=== PATIENT | male | born 1940 | race Caucasian/White ===

== ENCOUNTER 2019-03-02 17:00 | Inpatient (IN) | payer OTHER, MEDICARE ==
[~2019-03-02] VITALS: Ht 175.3 cm; Wt 69.5 kg
[2019-03-02 17:42] LABS: CARBON DIOXIDE 27.9 mmol/L (21-32); CHLORIDE SERUM 101 mmol/L (98-107); CREATININE SERUM 1.4 mg/dL (0.7-1.3); GLUCOSE SERUM 96 mg/dL (74-106); POTASSIUM SERUM 4.8 mmol/L (3.5-5.1); SODIUM SERUM 136 mmol/L (136-145)
[2019-03-02 17:47] LABS: ALKALINE PHOSPHATASE 116 U/L (46-116); ALT/SGPT 17 U/L (16-63); AST/SGOT 25 U/L (15-37); BILIRUBIN TOTAL 0.57 mg/dL (0.20-1.00); TOTAL PROTEIN, SERUM 6.9 g/dL (6.4-8.2)
[2019-03-02 17:48] LABS: ALBUMIN 2.9 g/dL (3.4-5.0)
[2019-03-02 18:00] LABS: BASOPHIL % 0.6 % (0-2); PLATELET COUNT 347 x10^3mcL (130-400); RED CELL DISTRIBUTION WIDTH 14.9 % (11.5-14.5)
[2019-03-02] MEDS ORDERED: LIPI20 PO (20:53)
[2019-03-02] MEDS ORDERED: CLOPIDOGREL75 M1 PO (20:53)
[2019-03-02] MEDS ORDERED: ASPIR 8181 MG PO (20:53)
[2019-03-02] MEDS ORDERED: LAMOTRIGINE100 M1 PO (20:54)
[2019-03-02] MEDS ORDERED: LEVOTHYROXIN0.125 M2 PO (20:54)
[2019-03-02] MEDS ORDERED: PROZ20 PO (20:54)
[2019-03-02] MEDS ORDERED: PYRIDOSTIGMINE60 MG PO (20:55)
[2019-03-02] MEDS ORDERED: MAGNESIUM OXID400 MG PO (20:55)
[2019-03-02] MEDS ORDERED: TRAMADOL HCL50 MG PO (20:56)
[2019-03-02] MEDS ORDERED: SEROQUEL50 M1 PO (20:56)
[2019-03-02] MEDS ORDERED: VITAMIN B121000 MCG PO (20:56)
[2019-03-02 21:07] LABS: microscopic required? NO
[2019-03-02 21:20] LABS: CHOLESTEROL/HDL RATIO 2.2
[2019-03-02 21:34] LABS: UA SPECIFIC GRAVITY <=1.005 (1.005-1.035); urine erythrocyte NEGATIVE (NEGATIVE)
[2019-03-02 21:54] VITALS: BP 150/89
[2019-03-03 05:47] VITALS: BP 141/64
[2019-03-03 06:47] LABS: CALCIUM 8.4 mg/dL (8.5-10.1); CARBON DIOXIDE 30.1 mmol/L (21-32); CHLORIDE SERUM 104 mmol/L (98-107); CREATININE SERUM 1.2 mg/dL (0.7-1.3); GLUCOSE SERUM 90 mg/dL (74-106); POTASSIUM SERUM 4.2 mmol/L (3.5-5.1); SODIUM SERUM 138 mmol/L (136-145)
[2019-03-03 07:33] LABS: BASOPHIL % 0.6 % (0-2); PLATELET COUNT 331 x10^3mcL (130-400); RED CELL DISTRIBUTION WIDTH 15.1 % (11.5-14.5)
[2019-03-03 09:00] VITALS: BP 103/71
[2019-03-03 12:44] VITALS: BP 123/65
[2019-03-03 13:24] VITALS: BP 123/65
[2019-03-06 13:46] VITALS: Ht 175.3 cm; Wt 69.5 kg
== END 2019-03-03 14:55 | DRG 604 ==
LOC: ED 17:00 → DU 20:33
PROVIDERS: Emergency Medicine; ADMIT Family Medicine
DX: S00.03XA Contusion of scalp, initial encounter (principal); N17.0 Acute kidney failure with tubular necrosis; E44.0 Moderate protein-calorie malnutrition; F33.9 Major depressive disorder, recurrent, unspecified; I25.10 Atherosclerotic heart disease of native coronary artery without angina pectoris; E03.9 Hypothyroidism, unspecified; M54.9 Dorsalgia, unspecified; G89.29 Other chronic pain; Z66 Do not resuscitate; Z95.3 Presence of xenogenic heart valve; Z95.1 Presence of aortocoronary bypass graft; Z68.24 Body mass index [BMI] 24.0-24.9, adult; Z87.891 Personal history of nicotine dependence; Z79.02 Long term (current) use of antithrombotics/antiplatelets; Z79.82 Long term (current) use of aspirin; W01.0XXA Fall on same level from slipping, tripping and stumbling without subsequent striking against object, initial encounter; Y92.099 Unspecified place in other non-institutional residence as the place of occurrence of the external cause
CPT/HCPCS: J0696; J3490; J7030; Q0092; Q9967

== ENCOUNTER 2019-03-04 15:50 | Emergency (ER) | payer OTHER, MEDICARE ==
[~2019-03-04] VITALS: Ht 175.3 cm; Wt 86.2 kg
[~2019-03-04 15:50] MED LIST: ASPIR 8181 MG PO; CLOPIDOGREL75 M1 PO; LAMOTRIGINE100 M1 PO; LEVOTHYROXIN0.125 M2 PO; LIPI20 PO; MAGNESIUM OXID400 MG PO; PROZ20 PO; PYRIDOSTIGMINE60 MG PO; SEROQUEL50 M1 PO; TRAMADOL HCL50 MG PO; VITAMIN B121000 MCG PO
[2019-03-04 15:56] VITALS: Ht 175.3 cm; Wt 86.2 kg
[2019-03-04 19:38] VITALS: BP 117/68
== END 2019-03-04 19:38 | disposition home or self-care (01) ==
LOC: ED 15:50
DX: S09.8XXA Other specified injuries of head, initial encounter (principal); I10 Essential (primary) hypertension; W18.39XA Other fall on same level, initial encounter; Y93.89 Activity, other specified; Y92.89 Other specified places as the place of occurrence of the external cause; Y99.8 Other external cause status

== ENCOUNTER 2019-04-18 19:23 | Emergency (ER) | payer OTHER, MEDICARE ==
[~2019-04-18] VITALS: Ht 175.3 cm; Wt 83.9 kg
[~2019-04-18 19:23] MED LIST changes: -LEVOTHYROXIN0.125 M2 PO
[2019-04-18 19:32] VITALS: Ht 175.3 cm; Wt 83.9 kg
[2019-04-18 22:30] VITALS: BP 113/59
== END 2019-04-18 22:30 | disposition home or self-care (01) ==
LOC: ED 19:23
DX: S09.8XXA Other specified injuries of head, initial encounter (principal); I10 Essential (primary) hypertension; Z95.818 Presence of other cardiac implants and grafts; Z98.890 Other specified postprocedural states; W01.0XXA Fall on same level from slipping, tripping and stumbling without subsequent striking against object, initial encounter; Y93.01 Activity, walking, marching and hiking; Y92.89 Other specified places as the place of occurrence of the external cause; Y99.8 Other external cause status

== ENCOUNTER 2019-05-26 11:37 | Inpatient (IN) | payer OTHER, MEDICARE ==
[~2019-05-26] VITALS: Ht 175.3 cm; Wt 69.9 kg
[2019-05-26 11:45] VITALS: Ht 175.3 cm; Wt 69.9 kg
--- NOTE | 2019-05-26 11:45 | NUR ---
PT BIB [facility] AMBULANCE WITH C/O INTERMITTENT N/V WITH GENERALIZED ABD "DULLNESS" X2-3 DAYS. PT STS HX GASTRIC ULCERS. PT DENIES ANY URINARY S/S. PT AAOX4, RESPS E/U, SKIN PINK DRY AND WARM, -N/V AT THIS TIME, PT GOWNED AND PLACED ON FULL CM, NSR
--- NOTE | 2019-05-26 11:49 | NUR ---
LAB AT BEDSIDE
--- NOTE | 2019-05-26 11:50 | NUR ---
PT STS AMBULATES WITH HIS CANE AND/OR WALKER WHICH IS CURRENTLY AT [facility].
--- NOTE | 2019-05-26 11:55 | NUR ---
PT INSTRUCTED TO PROVIDE URINE SPECIMEN LETITIA
[2019-05-26 12:11] LABS: BASOPHIL % 0.2 % (0-2); PLATELET COUNT 362 x10^3mcL (130-400); RED CELL DISTRIBUTION WIDTH 14.5 % (11.5-14.5)
[2019-05-26 12:12] LABS: CARBON DIOXIDE 26.7 mmol/L (21-32); CHLORIDE SERUM 105 mmol/L (98-107); CREATININE SERUM 1.3 mg/dL (0.7-1.3); GLUCOSE SERUM 103 mg/dL (74-106); POTASSIUM SERUM 4.1 mmol/L (3.5-5.1); SODIUM SERUM 141 mmol/L (136-145)
[2019-05-26 12:16] LABS: ALKALINE PHOSPHATASE 91 U/L (46-116); ALT/SGPT 15 U/L (16-63); AMYLASE 57 U/L (25-115); AST/SGOT 16 U/L (15-37); BILIRUBIN TOTAL 0.7 mg/dL (0.20-1.00); LIPASE 41 IU/L (73-393)
[2019-05-26 12:17] LABS: ALBUMIN 3.1 g/dL (3.4-5.0)
--- NOTE | 2019-05-26 12:30 | NUR ---
PT TAKEN TO CT VIA EKATERINA
--- NOTE | 2019-05-26 12:50 | NUR ---
PT IN POSITION OF COMFORT, RESPS E/U, PT REMINDED TO PROVIDE URINE SPECIMEN LETITIA, CALL LIGHT WITHIN REACH
[2019-05-26 13:18] LABS: T4(THYROXINE) 8.9 ug/dL (4.7-13.3)
[2019-05-26] MEDS ORDERED: CALCITRIOL0.5 MCG PO (13:29)
[2019-05-26] MEDS ORDERED: GOOD SENSE ASPI81 M3 PO (13:29)
[2019-05-26] MEDS ORDERED: LEVOTHYROXIN0.125 M2 PO (13:30)
[2019-05-26] MEDS ORDERED: MIDODRINE HCL2.5 M1 PO (13:31)
[2019-05-26] MEDS ORDERED: TRAZODONE50 M1 PO (13:32)
[2019-05-26] MEDS ORDERED: VITB12I PO (13:33)
[2019-05-26] MEDS ORDERED: ACETAMINOP160 MG/52 PO (13:36)
[2019-05-26 14:48] LABS: microscopic required? YES; urine erythrocyte NEGATIVE (NEGATIVE)
--- NOTE | 2019-05-26 14:54 | NUR ---
PT IN POSITION OF COMFORT, RESPS E/U, CALL LIGHT WITHIN REACH, WARM BLANKET PROVIDED PER PT REQUEST AND COMFORT
[2019-05-26 14:58] LABS: AMPHETAMINE QUAL UR NONE DETECTED (See below)
--- NOTE | 2019-05-26 15:53 | NUR ---
PT RESTING IN POSITION OF COMFORT, RESPS E/U, IN NAD AT THIS TIME, CALL LIGHT WITHIN REACH
--- NOTE | 2019-05-26 16:12 | NUR ---
MD SILVA AT BEDSIDE DISCUSSING POC
--- NOTE | 2019-05-26 16:20 | NUR ---
REPORT GIVEN TO VIKA GRIFFITHS TELE RM [id number]
--- NOTE | 2019-05-26 17:00 | NUR ---
RECEIVED PATIENT AWAKE AND SEEMS AT FIRST TO ORIENTED BUT ON FURTHER TALKIGN WITH THE PATIENT HIS HISTORY IS A LITTLE OFF HE DOES OT REMEMBER BEIGN AT THIS HOSPITAL IN FEBRUARY AND DOES NOT REMEMBER HAVING THE PNEUMONIA VACINE IN 2017. WITH THIS BEING SO STAFF WAS ABLE TO DETERMINE ALSO THE PATIENT HAD NOT BEEN EATTING AND HAD A RECENT FALL IN FEBRUARY. HE HAS PRESENTED WITH NAUSEA AND HAD BEEN VOMITING AT HOME FOR A COUPLE OF DAYS. HE HAS ADMITTEDLY NOT EATTEN HE STATES HE DOES NOT LIKE THE FOOD AT THE FACILTY. PATIENT HAS IV ITNAC TAND CONTINUED ON THE FLUIDS ORDERED. RUNNING WAS TWO IV BAGS EACH WITH ABOUT 300CC A PIECE. WILL FINISH AND START THE FLUIDS ORDERED. PATIENT HAS PALE SKIN AND IS LEAN IN APPEARANCE. HIS WEIGHT IS AT 154 AND HE IS 5'9". HE USE TO WEIGHT WELL OVER 250LBS PER THE PATIENT . 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 HE DENIE ANY PROBLEMS WITH URINATION AND SEEMS A LITTLE HESITANT ON WHEN HE LAST MOVED HIS BOWELS. PATIENT AHS INDICATE DHE IS HUNGERY AND STAT HE HEARD THE FOOD IS BETTER HERE AND THE FOOD AT THE FACILITY IS NOT GOO AND HE JUST WOUNT EAT WHAT IS OFFERED MOST OF THE TIME. HX OF MRSA NOTED AND PATIENT HAD THE NAREA SWABBED AND AWAITING RESULTS. URINE IWTH SOME BACTERIA AND PATIENT ASN WBC AT 12.3. ALBUMIN AT 3.1 AND THE TSH AT 0.26. DENIE STAKING MEDICADTION AT HOME DUE TO NAUSEA. ON XRAY THE PATIE TNHAS PLEURAL EFFUSION BUT DENIES THIS WHEN ADVISE DOF HIS RESULTS. HE HAS ALOS HISTORY OF BLEEDDING ULCER AROUND THE TIME HE HAS THE CABAG. NO ACTIVE BLEEDIGN REPORTED AND ALBAN AND DR THOMAS TO SEE CONSULT. VITALS AT THIS TIME AT 161/82, 126MAP, 96.8, 67, 18. WILL CONTINUE TO MONITOR.
[2019-05-26 17:12] VITALS: BP 161/82
--- NOTE | 2019-05-26 18:36 | NUR ---
BRANDY IS ANXIOUS AND RESTLESS AT TIMES. WILL ADVISE THAT PATIENT MAKE BE A FALL HAZARD AND TO BRING CLOSURE TO THE STATION.
--- NOTE | 2019-05-26 19:25 | NUR ---
PT RESTING IN BED, AOX3, FORGETFUL AT TIMES, ABLE TO REORIENT. DENIES GALEANA/DIZZINESS. TELE # 10 SR W/ INVERTED T WAVES, DENIES CP. PULSES PALPABLE BILAT, DENIES NUMBNESS/TINGLING IN FEET. RESP EVEN AND UNLABORED ON RA, DENIES SOB. DIM BILAT BASES. ABD SOFT, FLAT, DENIES PAIN IN ABD. PT UNABLE TO RECALL LAST BM, PT REPORTS HAVING NOT EATING IN SOME TIME. PT REPORTS LAST MEAL WAS A "SALTY SOUP" FROM HIS ASSISTED LIVING FACILITY, PT ALSO REPORTS HAVING DECREASED APPETITE BECAUSE THE FOOD WAS NOT HIS PREFERENCE. PT REPORTS HAVING LOST A SIGNIFICANT AMOUNT OF WEIGHT (NUMBERS VARYING; 25LBS, 50LBS, 30LBS). EDUCATED PT IN SELECTED FOODS HE LIKES AND EATING THOSE FIRST WELL EATING IN A GROUP SETTING TO ENCOURAGE A LONGER MEAL TIME. PT VERBALIZES UNDERSTANDING, PT CURRENTLY ON CLEAR LIQUIDS D/T VOMITING AT FACILITY. NO VOMITING SINCE ADMISSION TO [facility]. PT VOIDS FREELY IN RESTROOM, ENCOURAGED CALL LIGHT USAGE SINCE PT DEMONSTRATES A SLOW, SHUFFLING GAIT WITH MOMENTS OF IMPULSION. BED ALARM ON, CALL LIGHT WITHIN REACH. PT REPORTS USING WALKER/CANE AT HOME. SKIN INTACT. DENIES PAIN AT THIS TIME. IV SITE TO THE LAC PATENT, BOLUS ALMOST COMPLETE. ALL COMFORT AND SAFETY MEASURES PROVIDED FOR, CALL LIGHT WITHIN REACH, BED IN LOWEST POSITION, WILL CONTINUE TO MONITOR.
[2019-05-26 20:30] VITALS: BP 137/72
[2019-05-26 20:40] VITALS: BP 142/82
--- NOTE | 2019-05-26 21:30 | NUR ---
INSERTED NEW IV TO THE RFA, 22G. REMOVED OLD IV FROM LAC D/T LEAKING. REMOVED WITH CATH INTACT, PT TOLERATED WELL. WILL CONTINUE TO MONITOR.
--- NOTE | 2019-05-27 03:50 | NUR ---
MEDICATED PT WITH MILK OF MAG FOR CONSTIPATION. PT ATTEMPTED TO GET OUT OF BED WITHOUT USING CALL LIGHT INSTRUCTED. BED ALARM SOUNDED AND PT STANDING AT BEDSIDE UNABLE TO MANUEVER IV POLE. ASSISTED PT TO TOILET WITH UNSUCCESSFUL ATTEMPTED AT BM (PT SAT FOR APPROX 10 MINS). EDUCATED PT HE HAS BEEN ON CLEAR LIQUID DIET SINCE ADMISSION AND PRIOR TO WAS REPORTEDLY VOMITING X3 DAYS. PT REQUESTING SUPPOSITORY, RECOMMENDED PT TRY MILK OF MAG A CONSERVATIVE TX FOR FEELINGS OF CONSTIPATION, PT VERBALIZES UNDERSTANDING, CALL LIGHT WITHIN REACH AND PT AWARE OF NEEDING TO USE CALL LIGHT FOR ASSISTANCE. BED IN LOWEST POSITION, WILL CONTINUE TO MONITOR PT CLOSELY FOR SAFETY AND REORIENTATION PRN.
--- NOTE | 2019-05-27 05:00 | NUR ---
PT RESTED IN INTERVALS DURING SHIFT, NO ACUTE CHANGES OCCURRING OVERNIGHT. PT CONTINUES TO ATTEMPT TO HAVE BM, MILK OF MAG GIVEN. PT HAS BEEN ON CLEAR LIQUIDS FOR ONE DAY. NO N/V/D DURING SHIFT. PT HAS NEW IV TO THE RFA WHICH REMAINS PATENT, NS @ 50ML/HR. NO REDNESS, SWELLING OR PAIN NOTED. PT ATTEMPTED TO GET OUT OF BED TWICE WITHOUT USING CALL LIGHT WHICH IS WHY BED ALARM REMAINS ACTIVATED. PT VERBALIZES THE NEED FOR BED ALARM AND APPRECIATION FOR CONCERN FOR SAFETY. WILL CONTINUE TO EDUCATE PT ON SAFETY PROTOCOLS. PT REMAINS ON RA, DENIES SOB. ALL COMFORT AND SAFETY MEASURES PROVIDED FOR, CALL LIGHT WITHIN REACH, BED IN LOWEST POSITION, WILL CONTINUE TO MONITOR.
[2019-05-27 06:02] VITALS: BP 129/76
[2019-05-27 06:50] LABS: CARBON DIOXIDE 24.3 mmol/L (21-32); CHLORIDE SERUM 108 mmol/L (98-107); CREATININE SERUM 1.2 mg/dL (0.7-1.3); GLUCOSE SERUM 93 mg/dL (74-106); MAGNESIUM 1.9 mg/dL (1.8-2.4); POTASSIUM SERUM 3.6 mmol/L (3.5-5.1); SODIUM SERUM 140 mmol/L (136-145)
[2019-05-27 07:04] LABS: BASOPHIL % 0.6 % (0-2); PLATELET COUNT 301 x10^3mcL (130-400); RED CELL DISTRIBUTION WIDTH 14.5 % (11.5-14.5)
--- NOTE | 2019-05-27 07:15 | NUR ---
ENDORSED ALL CARE TO DAYSHIFT NURSE, NO ACUTE DISTRESS NOTED. ALL QUESTIONS AND CONCERNS ADDRESSED, CALL LIGHT WITHIN REACH, BED IN LOWEST POSITION, WILL CONTINUE TO MONITOR.
--- NOTE | 2019-05-27 08:00 | NUR ---
PATIENT RECEIVED ALERT AND ORIENTED TIMES FOUR. PATIENT HAS BEEN UP AND TO THE RESTROOM AND NTOE DSOME UNSTEADINESS BUT OVERALL HAS BEEN ABLE TO GET THERE AND BACK WITH NO ISSUES. PATIENT HAS BEEN USING THE IV POLE A TYPE OF ASSISTIVE DEVICE. PATIENT HAS DIMINISHED BREATH SOUND AND NO RALE SHEARD BUT NOTED THE PATIENT HAS PLEURAL EFFUSIONS AND HAS BEEN WITH MINIMAL INTAKE OF DIET AT HOME FOR OVER A MONTH. PATIENT HAS BEEN GIVEN ALL HIS ORAL MEDICATION AND PEPCID FOR HIS STOMACH WELL. HX OF GASTRIC ULCERS, HYPOTHYROID, CABG AND DEPRESSION AND CHRONIC BACK PAIN. HE NOW ADVISE DHE GALEANA A FRACTURED ANKELAS WELL AT ONE TIME REQUIRING SURGERY. HE STATES HE WARKED AT THIS HOSPITAL MANY YEARS AGO IN THE HUMAN RESOURCES OFFICE AND SEMS TO HAVE KNOWN SOME OF THE [facility] STAFF HERE. 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 AT TIMES HE IS FORGETFUL BUT HAS BEEN LUCID THIS AM. PATIENT WAS SEEN EARLIER BY THE MUCK MINER AND PLAN FO CARE DISCUSSED. NO ORDERS FOR DISCHARGE AT THIS TIME. THE PATIENT COLOR IS STILL PALE BUT IMPROVED SINCE YESTERDAY AND HIS ALOC HAS IMPROVED WELL. HE HIS PETRA IS 163 THIS AM. CONTINUED ON HYDRATION INDICATED. ENCOURAGED TO DEEP BREATH OTEN. REFUSED THE SPRIOMETER WHEN OFFERED BY RT.
[2019-05-27 08:59] VITALS: BP 119/69
--- NOTE | 2019-05-27 10:41 | NUR ---
SEEN BY DR LAWS AND REFUSED ANY PROCEDURE AT THIE TIME. PATIENT HAS BEEN OFFERED EGD AND OR COLONOSCOPY. PATIENT DENIES ANY NAUSEA OR DISTRESS AND STATES "FEELS BETTER AND DOES NOT NEED ANY FURTHER TESTING."
--- NOTE | 2019-05-27 10:42 | NUR ---
NEW ORDER FOR IVPB ANTIBIOTIC NOTED. TO GIVE AT 1400 TODAY. WILL ADVISE THE PATIENT AND THE INDICATION HE FEELS HE SHOULD BE ABLE TO GO HOME TODAY.
--- NOTE | 2019-05-27 12:02 | NUR ---
PATIENT ATTEMPTED TO DISIMPACT HIMSELF. THE NURSE OFFERED ASSISTANCE WHE PATIENT WAS STRAINING AND COULD NOT RELEASE HIS STOOL. PATIENT HAD A MEDIUM STICKY BROWN STOOL AND HE STATES HE FEELS BETTER NOW. OFFERED OINTMENT FOR ANY SORENESS TO THE RECTUM. PATIENT HAD PULLED OFF HIS MONITOR AT THAT TIME AND NOW AT 72 SINUS AND PATIENT HAD PULLED OUT HIS IV WELL. RESTARTED WITH 22 TO THE LEFT FORARM AND CONTINUED FLUIDS INDICATED.
[2019-05-27 12:26] VITALS: BP 107/67
--- NOTE | 2019-05-27 13:00 | NUR ---
CALED THE FLOOR TECHNICIAN WITH ADVISE THAT THE PATIENT IS STRAINING AND ATTEMPTING TO DISIMPACT AND THAT STAFF WOULD LIKE AN ORDER FOR STAFF TODO PATIENT IS HAVING DIFFICULTY AND IS VERY UNCOMFORTABLE. FLOOR TECHNICIAN IS AWARE AND STAFF WILL ASSIST NEEDED.
--- NOTE | 2019-05-27 15:59 | NUR ---
TOLERATED DIET WELL AND HAS BEEN COMFORTABLE POST HAVING HTE MEAL AND A GOOD BM THIS AM. STARTED IN ZOSYN IVPB AND WILL MONITOR FOR ANY ADVERSE REACTION.
[2019-05-27 17:08] VITALS: BP 118/61
--- NOTE | 2019-05-27 19:30 | NUR ---
PT RESTING IN BED, AOX3, PT MORE ALERT AND AWARE OF SURROUNDINGS TODAY. DENIES GALEANA/DIZZINESS. TELE # 10 SR, DENIES CP. PULSES PALPABLE BILAT, DENIES NUMBNESS/TINGLING IN FEET. RESP EVEN AND UNLABORED ON RA, DENIES SOB. DIM BILAT BASES. ABD SOFT, ROUND. PT WAS DISIMPACTED BY DAYSHIFT NURSE, LARGE, SOFT, "STICKY" BM NOTED. PT REPORTS EATING SOME DINNER, DENIES N/V/ABD PAIN AFTER EATING. PT REPORTS DECREASED APPETITE YET HE IS HAPPY TO BE LOSING WEIGHT SINCE HE WAS OVERWEIGHT HIS WHOLE LIFE. EDUCATED PT IN REGARDS TO SAFE WEIGHT MANAGEMENT AND EATIGN NUTRIOUS MEALS TO ENSURE HE MAINTAINS MUSCLE STRENGTH. PT VERBALIZES UNDERSTANDING, PT VOIDS FREELY IN RESTROOM W/ SBA, ENCOURAGED CALL LIGHT USAGE SINCE PT DEMONSTRATES A SLOW, SHUFFLING GAIT WITH MOMENTS OF IMPULSION. BED ALARM ON, CALL LIGHT WITHIN REACH. PT REPORTS USING WALKER/CANE AT HOME. SKIN INTACT. DENIES PAIN AT THIS TIME. IV SITE TO [facility] PATENT, PT ON ANTIBIOTICS. ALL COMFORT AND SAFETY MEASURES PROVIDED FOR, CALL LIGHT WITHIN REACH, BED IN LOWEST POSITION, WILL CONTINUE TO MONITOR.
[2019-05-27 22:47] VITALS: BP 120/63
[2019-05-28 04:56] VITALS: BP 121/61
--- NOTE | 2019-05-28 05:04 | NUR ---
PT RESTED IN INTERVALS DURING SHIFT, NO ACUTE CHANGES OCCURRING OVERNIGHT. PT DENIES N/V/D DURING SHIFT, PT AMBULATED WITH STAND BY ASSIST (SBA) TO RESTROOM DEMONSTRATING MORE OF A STEADY GAIT ALTHOUGH IMPULSIVE STILL AND UNABLE TO INITIATE SAFETY PRECAUTIONS ON OWN. PT RESISTENT TO WEARING NONSLIP SOCKS ALTHOUGH INSTRUCTED IT IS HOSPITAL POLICY, PT VERBALIZES UNDERSTANDING AND COOPERATIVE WITH CARE AT THIS TIME. WHEN EDUCATING PATIENT TO NOT RISE TOO FAST D/T RISK FOR LIGHTHEADEDNESS/DIZZINESS, PT STS "IF I GET LIGHTHEADED, I WILL JUST FALL". PT EDUCATED WE ARE TRYING TO KEEP HIM SAFE AND PT VERBALIZES UNDERSTANDING. PT DID NOT HAVE BM DURING SHIFT, PT VOIDED W/O DYSURIA. IV SITE REMAINS PATENT TO RFA NS @ 50ML/HR. NO REDNESS, SWELLING OR PAIN NOTED. ALL COMFORT AND SAFETY MEASURES PROVIDED FOR, CALL LIGHT WITHIN REACH, BED IN LOWEST POSITION, WILL CONTINUE TO MONITOR.
[2019-05-28 06:32] LABS: CALCIUM 7.7 mg/dL (8.5-10.1); CARBON DIOXIDE 26.7 mmol/L (21-32); CHLORIDE SERUM 110 mmol/L (98-107); CREATININE SERUM 1.2 mg/dL (0.7-1.3); GLUCOSE SERUM 90 mg/dL (74-106); POTASSIUM SERUM 3.5 mmol/L (3.5-5.1); SODIUM SERUM 143 mmol/L (136-145)
[2019-05-28 07:17] LABS: BASOPHIL % 0.4 % (0-2); PLATELET COUNT 285 x10^3mcL (130-400); RED CELL DISTRIBUTION WIDTH 14.5 % (11.5-14.5)
--- NOTE | 2019-05-28 07:34 | NUR ---
ENDORSED ALL CARE TO DAYSHIFT NURSE, NO ACUTE DISTRESS NOTED. ALL COMFORT AND SAFETY MEASURES PROVIDED, CALL LIGHT WITHIN REACH, BED IN LOWEST POSITION.
--- NOTE | 2019-05-28 07:37 | NUR ---
ALL CARE ENDORSED TO DAYSHIFT NURSE, NO ACUTE DISTRESS NOTED. ALL COMFORT AND SAFETY MEASURES PROVIDED FOR, CALL LIGHT WITHIN REACH, BED IN LOWEST POSITION.
--- NOTE | 2019-05-28 08:00 | NUR ---
SHIFT ASSESSMENT DONE. PATIENT ALERT, ABLE TO MADE NEEDS KNOWN. BUT FORGETFULNESS. TELE#10; SR. HR =67. DENIED CHEST PAIN. BREATHING SOUND CLEAR BUL, BUT DIMINISHED TO RLL W/ FINE CRACKLES. NO SOB; O2 SAT 97% ON RA. DENIED PAIN. IVF OF NS 50CC/HR; IV SITE TO LFA INTACT. CALL LIGHT IN REACH. CONTACT ISOLATION FOR HX OF MRSA (+) NARES.
[2019-05-28 09:15] VITALS: BP 85/48
[2019-05-28 12:42] VITALS: BP 103/54
[2019-05-28 17:38] VITALS: BP 104/53
--- NOTE | 2019-05-28 18:01 | NUR ---
CONDITION STABLE. NO RESP DISTRESS ON RA. DENIED PAIN. HAD LARGE BM LAST SHIFT, HAD VOID X2 THIS SHIFT. TOLERATED REGULAR DIET DINNER. ENDORSED CARE TO NOC NURSE.
--- NOTE | 2019-05-28 18:38 | NUR ---
NARES CULTURE FOR MRSA NEGATIVE. ISOLATION D/C'D PER PROTOCOL. ENDROSED CARE TO [facility] NURSE.
--- NOTE | 2019-05-28 19:30 | NUR ---
PT RESTING IN BED, AOX3, PT HAD AN A BM WHILE TRYING TO GET TO THE RESTROOM, PT CLEANED BY HEALTH TECH AND RETURNED BACK TO BED. DENIES ABD PAIN. DENIES GALEANA/DIZZINESS. TELE # 10 SR, DENIES CP. PULSES PALPABLE BILAT, DENIES NUMBNESS/TINGLING IN FEET. RESP EVEN AND UNLABORED ON RA, DENIES SOB. DIM BILAT BASES. ABD SOFT, FLAT. PT REPORTS EATING SOME DINNER, DENIES N/V/ABD PAIN AFTER EATING. PT VOIDS FREELY IN RESTROOM W/ SBA, ENCOURAGED CALL LIGHT USAGE SINCE PT DEMONSTRATES A SLOW, SHUFFLING GAIT WITH MOMENTS OF IMPULSION. BED ALARM ON, CALL LIGHT WITHIN REACH. PT REPORTS USING WALKER/CANE AT HOME. SKIN INTACT. DENIES PAIN AT THIS TIME. IV SITE TO THE LFA PATENT, PT ON ANTIBIOTICS. ALL COMFORT AND SAFETY MEASURES PROVIDED FOR, CALL LIGHT WITHIN REACH, BED IN LOWEST POSITION, WILL CONTINUE TO MONITOR.
[2019-05-28 20:05] VITALS: BP 101/57
--- NOTE | 2019-05-28 22:30 | NUR ---
UPON ROUTINE CHECK, PT ASKED "ARE THERE STUDENTS THAT SLEEP HERE TOO OR IS IT JUST A DORM IM IN?" PROVIDED REORIENTATION TO PT WHOM WAS EASILY REORIENTED. PT AWARE HE IS IN A HOSPITAL. PT ASKED IF THE BED ALARM WAS ON, DEMANDING IT BE TURNED OFF. EDUCATED PT IT IS FOR HIS SAFETY SINCE HE HAS FALLEN IN THE PAST. PT REPORTS "IF WORST COMES TO WORST, I WILL JUST CRAWL". INFORMED PT THAT IS NOT APPROPRIATE OR NECESSARY AND HE WILL REMAIN WITH BED ALARM TO ENSURE SAFETY. EXPLAINED HOSPITAL PROCEDURE TO PT AND PT VERBALIZES UNDERSTANDING, CALL LIGHT WITHIN REACH, BED IN LOWEST POSITION, WILL CONTINUE TO MONITOR.
--- NOTE | 2019-05-29 00:05 | NUR ---
PT BED ALARM SOUNDED, UPON ASSESSMENT, PT WAS TRYING TO GET OUT OF BED. PT AGITATED BED ALARM IS ON STILL. EDUCATED PT IN REGARDS TO SAFETY POLICY AND D/T PT NUMEROUS FALLS IN THE PAST REPORTED, PT NEEDS TO WEAR NON SLIP SOCKS PRIOR TO GETTING OUT OF BED ALTHOUGH HE DOES NOT WANT TO. PT VERY UPSET AND SHORT IN REGARDS TO NEEDING TO WEAR SOCKS, STATING "I DONT REALLY CARE IF I FALL". PROVIDED SAFETY MEASURES FOR PT (NONSLIP SOCKS, SBA WHILE GETTING UP, EDUCATION ON PULLING CORD IN RESTROOM WHEN DONE), PT VERBALIZES UNDERSTANDING. PT RETURNED BACK TO BED SAFETY , ALL COMFORT AND SAFETY MEASURES PROVIDED FOR, CALL LIGHT WITHIN REACH, BED IN LOWEST POSITION, WILL CONTINUE TO MONITOR.
[2019-05-29 04:57] VITALS: BP 137/64
--- NOTE | 2019-05-29 05:05 | NUR ---
PT RESTED IN INTERVALS DURING SHIFT, NO ACUTE CHANGES OCCURRING OVERNIGHT. PT AMBULATED TO RESTROOM WITH SBA WITH SLOW/STEADY GAIT. PT IMPULSIVE AT TIMES. PT SLIGHTLY MORE IRRITABLE THAN PRIOR NIGHTS D/T PT RESISTENT TO OBEYING SAFETY PROTOCOL INITIATED FOR FALL RISK PT. PT COOPERATIVE AT TIMES ALTHOUGH REMAINS FORGETFUL OF WHERE HE IS AT. IV SITE REMAINS PATENT, NS @ 50ML/HR. NO REDNESS, SWELLING OR PAIN NOTED. CALL LIGHT WTIHIN REACH, BED IN LOWEST POSITION, WILL CONTINUE TO MONITOR.
--- NOTE | 2019-05-29 06:59 | NUR ---
INSERTED 22G IV TO THE RFA D/T IV TO THE LFA INFILTRATED. PT TOLERATED IV INSERTION WELL. REMOVED OLD IV FROM LFA, CATH INTACT. PT TOLERATED WELL. PT RECEIVING ANTIBIOTICS. ALL COMFORT AND SAFETY MEASURES PROVIDED FOR, CALL LIGHT WITHIN REACH, BED IN LOWEST POSITION, WILL ENDORSE CARE TO DAYSHIFT NURSE.
--- NOTE | 2019-05-29 07:50 | NUR ---
A+OX3, FORGETFUL AT TIMES, CONFUSED AT TIMES, TELE 10, PULSES MODERATE AND EQUAL SANDOR, NO EDEMA NOTED, LUNG SOUNDS DIMINISHED, TOLERATING RA, BOWEL SOUNDS ACTIVE, INCONTINENT OF STOOL AND URINE AT TIMES, GENERALIZED WEAKNESS, AMBULATORY WITH ASSIST, DRY SCAB TO R KNEE, R 2ND TOE WITH WRAP D/T LONG TOE NAILS, IV IN RFA WITH NS @ 50 ML/HR, SITE WNL.
--- NOTE | 2019-05-29 09:07 | NUR ---
PT RESTING IN BED, NO RESPIRATORY DISTRESS NOTED, DENIES PAIN, PT EDUCATED TO NOT GET UP ALONE, BED ALARM ON, CALL LIGHT WITHIN REACH.
[2019-05-29 09:25] VITALS: BP 109/59
[2019-05-29 09:38] VITALS: BP 109/59
[2019-05-29] MEDS ORDERED: LEVOTHYROXIN0.125 M2 PO (09:48)
--- NOTE | 2019-05-29 11:44 | NUR ---
COLT CLERK OF COURT NOTIFIED THAT PT HAS ERYTHEMA AROUND BOTH EYES.
--- NOTE | 2019-05-29 12:34 | NUR ---
PT CALLED GRICEL MYERS AND TOLD LOUIS HE WAS READY TO GO. GRICEL MYERS STATES THAT HE WILL TAKE PT BACK TO [facility] BUT IF PT IS NOT READY, PT WILL HAVE TO STAY ANOTHER NIGHT BECAUSE LOUIS HAS TO WORK. CASE MANAGMENT ORIN [employer] NOTIFIED AND CALLED [facility]. I TOO CALLED [facility] AND RICARDO FROM [facility] STATES PT CAN COME BACK TO [facility] AT THIS TIME AND HAS NO OTHER QUESTIONS/CONCERNS FOR ME. PT AND GRICEL MYERS GIVEN DC INSTRUCTIONS AND VERBALIZED UNDERSTANDING. GRICEL MYERS STATES HE IS ASSUMING RESPONSIBILITY FOR PT AND WILL TAKE HIM DIRECTLY TO [facility]. IV REMOVED WITH CATHETER INTACT, GAUZE AND TAPE PLACED ON SITE, SITE WNL. TELE REMOVED AND RETURNED TO [facility]. ASSISTED PT TO DRESS IN PERSONAL CLOTHES. PT OFF UNIT VIA WHEELCHAIR ESCORTED BY NOE AND GRICEL MYERS WITH ALL BELONGINGS INCLUDING GLASSES.
== END 2019-05-29 12:40 | DRG 186 ==
LOC: ED 11:37 → DU 15:15
PROVIDERS: Emergency Medicine; ADMIT Internal Medicine
DX: J90 Pleural effusion, not elsewhere classified (principal); J96.00 Acute respiratory failure, unspecified whether with hypoxia or hypercapnia; E46 Unspecified protein-calorie malnutrition; J44.1 Chronic obstructive pulmonary disease with (acute) exacerbation; R11.2 Nausea with vomiting, unspecified; R10.13 Epigastric pain; I11.9 Hypertensive heart disease without heart failure; I25.10 Atherosclerotic heart disease of native coronary artery without angina pectoris; E78.00 Pure hypercholesterolemia, unspecified; E03.9 Hypothyroidism, unspecified; N20.0 Calculus of kidney; F32.9 Major depressive disorder, single episode, unspecified; F17.210 Nicotine dependence, cigarettes, uncomplicated; Z68.28 Body mass index [BMI] 28.0-28.9, adult; Z95.1 Presence of aortocoronary bypass graft; Z95.3 Presence of xenogenic heart valve; Z87.11 Personal history of peptic ulcer disease; Z90.3 Acquired absence of stomach [part of]; Z66 Do not resuscitate; Z53.29 Procedure and treatment not carried out because of patient's decision for other reasons
CPT/HCPCS: 83880; 97116-GP; G0378; J2405; J2543; J3490; J7030; J7620; Q0092

== ENCOUNTER 2019-06-16 21:41 | Emergency (ER) | payer OTHER, MEDICARE ==
[~2019-06-16] VITALS: Ht 175.3 cm; Wt 81.6 kg
[~2019-06-16 21:41] MED LIST changes: +ACETAMINOP160 MG/52 PO; +CALCITRIOL0.5 MCG PO; +GOOD SENSE ASPI81 M3 PO; +LEVOTHYROXIN0.125 M2 PO; +MIDODRINE HCL2.5 M1 PO; +TRAZODONE50 M1 PO; +VITB12I PO
[2019-06-16 21:52] VITALS: Ht 175.3 cm; Wt 81.6 kg
[2019-06-16 22:37] LABS: BASOPHIL % 0.7 % (0-2); PLATELET COUNT 342 x10^3mcL (130-400)
[2019-06-16 22:38] LABS: RED CELL DISTRIBUTION WIDTH 14.6 % (11.5-14.5)
[2019-06-16 23:19] LABS: CALCIUM 8.4 mg/dL (8.5-10.1); CARBON DIOXIDE 28.6 mmol/L (21-32); CHLORIDE SERUM 105 mmol/L (98-107); CREATININE SERUM 1.4 mg/dL (0.7-1.3); GLUCOSE SERUM 102 mg/dL (74-106); POTASSIUM SERUM 3.1 mmol/L (3.5-5.1); SODIUM SERUM 143 mmol/L (136-145)
[2019-06-16 23:24] LABS: ALBUMIN 2.5 g/dL (3.4-5.0); ALKALINE PHOSPHATASE 82 U/L (46-116); ALT/SGPT 13 U/L (16-63); AST/SGOT 16 U/L (15-37); BILIRUBIN TOTAL 0.3 mg/dL (0.20-1.00); MAGNESIUM 1.8 mg/dL (1.8-2.4); TOTAL PROTEIN, SERUM 5.7 g/dL (6.4-8.2)
[2019-06-17 00:39] LABS: microscopic required? NO
[2019-06-17 00:44] LABS: urine erythrocyte NEGATIVE (NEGATIVE)
[2019-06-17 04:12] VITALS: BP 151/84
== END 2019-06-17 04:12 | disposition home or self-care (01) ==
LOC: ED 21:41
PROVIDERS: Emergency Medicine
DX: S09.8XXA Other specified injuries of head, initial encounter (principal); E87.6 Hypokalemia; R53.1 Weakness; I10 Essential (primary) hypertension; Z98.890 Other specified postprocedural states; W18.30XA Fall on same level, unspecified, initial encounter; Y93.89 Activity, other specified; Y92.89 Other specified places as the place of occurrence of the external cause; Y99.8 Other external cause status
CPT/HCPCS: 36415; 82962; J7050

== ENCOUNTER 2019-07-19 12:14 | Inpatient (IN) | payer OTHER, MEDICARE ==
[~2019-07-19] VITALS: Ht 175.3 cm; Wt 66.4 kg
--- NOTE | 2019-07-19 12:30 | NUR ---
BIB MEDICS FROM [place] W/ C/O GENERALIZED WEAKNESS. PT FELL TODAY BUT DENIES INJURY/PAIN. PT FALLS FREQUENTLY PER MEDIC. PT C/O WEAKNESS & MALIASE. PT W/ EXTENSIVE MEDICAL HISTORY INCLUDING CARDIAC, MASSIVE GI BLEED REQUIRING 40 UNITS OF BLOOD & EMERGENT PARTIAL GASTRECTOMY, & ORTHOSTATIC HYPOTENSION.
--- NOTE | 2019-07-19 12:34 | NUR ---
PT'S CARE ASSUMED AT THIS TIME.
--- NOTE | 2019-07-19 12:41 | NUR ---
EKG IN PROGRESS BY MCKENNA MELARA.
[2019-07-19 13:13] LABS: BASOPHIL % 0.7 % (0-2)
--- NOTE | 2019-07-19 13:14 | NUR ---
X-RAY BEING DONE AT BEDSIDE.
[2019-07-19 13:16] LABS: RED CELL DISTRIBUTION WIDTH 14.8 % (11.5-14.5)
[2019-07-19 13:17] LABS: PLATELET COUNT 414 x10^3mcL (130-400)
[2019-07-19 13:20] LABS: CALCIUM 9.1 mg/dL (8.5-10.1); CARBON DIOXIDE 33.9 mmol/L (21-32); CHLORIDE SERUM 104 mmol/L (98-107); CREATININE SERUM 1.3 mg/dL (0.7-1.3); GLUCOSE SERUM 103 mg/dL (74-106); POTASSIUM SERUM 4.1 mmol/L (3.5-5.1); SODIUM SERUM 145 mmol/L (136-145)
[2019-07-19 13:24] LABS: ALKALINE PHOSPHATASE 116 U/L (46-116); ALT/SGPT 25 U/L (16-63); AST/SGOT 51 U/L (15-37); BILIRUBIN TOTAL 0.78 mg/dL (0.20-1.00); TOTAL PROTEIN, SERUM 6.5 g/dL (6.4-8.2)
--- NOTE | 2019-07-19 13:25 | NUR ---
X2 UNSSUCCESSFUL IV ATTEMPTS BY THIS RN. MAR GRIFFITHS AT BEDSIDE TO ATTEMPT.
[2019-07-19 13:26] LABS: ALBUMIN 2.7 g/dL (3.4-5.0)
--- NOTE | 2019-07-19 13:38 | NUR ---
PT AWARE OF NEEDED URINE SPECIMEN. PT STS "I'LL LET YOU KNOW WHEN I HAVE TO GO."
--- NOTE | 2019-07-19 14:30 | NUR ---
REPORT GIVEN TO LUIS GRIFFITHS. TELE ADMISSION. PT BEING TRANSPORTED TO FLOOR BY RN AND EMT. OPPORTUNITY GIVEN TO ASK QUESTIONS. PT'S CARE COMPLETED BY THIS RN AT THIS TIME.
--- NOTE | 2019-07-19 14:33 | NUR ---
ALEX WHITAKER, A CELL PHONE, A PERSONAL CANE/SHOES/T-SHIRT/PANT AND A BAGPACK.
[2019-07-19 14:34] LABS: CHOLESTEROL/HDL RATIO 2.5; FREE T4 1.65 ng/dL (0.76-1.46); FREE THYROXINE INDEX 3.7 ug/dL (1.4-4.5); T4(THYROXINE) 9.9 ug/dL (4.7-13.3)
[2019-07-19 14:35] LABS: T3 TOTAL 0.62 ng/mL
--- NOTE | 2019-07-19 14:41 | NUR ---
RECEIVED PT FROM ED VIA [id number], CAME IN DUE TO MULTIPLE FALLS. AAOX4. DENIES HEADACHE/DIZZINESS. ABLE TO FOLLOW COMMANDS. SPEECH IS CLEAR. HAND PUNCH HAND ARE EQUAL. NO FACIAL DROOP/ARM DRIFT NOTED. NO SOB NOTED, LUNG SOUNDS CTA, O2 SAT=95%, RA. DENIES CHEST PAIN/PRESSURE, SR ON THE MONITOR. DENIES ABDOMINAL DISCOMFORT. VOIDS. W/ MULTIPLE SCABS/ABRASION ON BILATERAL ELBOW AND BLE, W/ ECCHYMOSIS ON RUE AND BACK AND DISCOLORATIONS ON THE SACRAL-COCCYGEAL AREA. IV SITE PATENT AND INTACT. SIDE RAILS UPX2. CALL LIGHT ON REACH. PRIMARY NURSE LORY AT BEDSIDE FOR CONTINUITY OF CARE
[2019-07-19 15:02] VITALS: BP 157/72
[2019-07-19 15:07] VITALS: Ht 175.3 cm; Wt 66.4 kg
--- NOTE | 2019-07-19 18:49 | NUR ---
SITTING UP IN BED WATCHING TV. NO C/O PAIN OR RESP DISTRESS. PT CLAIMS HE HAS BEEN FALLING LOT AT HOME. MULTIPLE SCATTERD BRUISES TO LOWER BACK. SMALL SCRAPE TO RT KNEE. SCABS TO LEFT HANSEN CRUTCHING CONTRACTOR. NS INFUSING 100 CC HOUR. EXPLAINED TO PT HE WILL NEED TO USE BEDSIDE COMMODE OR BEDPAN TO PREVENT FURTHER FALLS. CALL LIGHT WITHIN REACH.
--- NOTE | 2019-07-19 19:40 | NUR ---
PT SEEN, RESTING IN BED, ALERT AND ORIENTED, DENIES HEADACHE OR DIZZINESS WHILE RESTING IN BED, C/O OF DIZZINESS WHEN HE STANDS UP, BREATHING EVEN AND UNLABORED, LUNG SOUNDS CLEAR, ON ROOM AIR WITH NO RESP DISTRESS NOTED, IVF INFUSING WELL, PULSES PALPABLE, NO EDEMA NOTED, GENERALIZED WEAKNESS, ABLE TO MOVE ALL EXT, ABD SOFT AND FLAT WITH ACTIVE BS, DENIES ANY PROBLEM WITH VOIDING, SANDOR ELBOWS AND BUE WITH SCABS AND ABRASION, BACK ABD RUE WITH ECCHYMOSIS, DISCOLORATION TO SACRA AND COCCYX AREA, FALL PRECAUTION IN PLACE.
--- NOTE | 2019-07-19 20:44 | NUR ---
UNABLE TO COMPLETED ORTHOSTATIC BLOOD PRESSURE ON STANDING DUE TO PT C/O OF DIZZINESS WHEN HE STANDS UP, DR ROTHMAN MADE AWARE.
[2019-07-19 21:05] VITALS: BP 128/64
--- NOTE | 2019-07-19 22:55 | NUR ---
PT CALLED AND STATED THAT HE NEEDS TO URINATE AT THIS TIME, NURSE AND YIELD LOSS INSPECTOR ASSISTED PT TO STAND UP AND USED URINAL, PT INSISTED THAT HE NEEDS GO TO THE BATHROOM AND URINATE BUT PT STATED HE CAN'T WALK, WC TRANSPORTATION OFFERED TO RESTROOM BUT PT DECLINED, PT ONLY CAN STAND UP LIKE 5 SECS EACH THEN FALL BACK TO BED DUE TO DIZZY AND WEAKNESS, PT WAS ABLE TO VOID 200 ML WITH URINAL, BACK TO BED WITHOUT ANY INCIDENT.
[2019-07-19 23:23] LABS: UA SPECIFIC GRAVITY 1.015 (1.005-1.035); microscopic required? YES; urine erythrocyte 1+ (NEGATIVE)
[2019-07-20 05:34] VITALS: BP 134/71
--- NOTE | 2019-07-20 05:47 | NUR ---
PT AWAKE AND RESTING IN BED, SLEPT MOST OF NIGHT, IVF INFUSING WELL, STILL WITH GENERALIZED WEAKNESS, CONDITION NO CHANGE, NO DISTRESS NOTED, WILL KEEP TO MONITOR.
[2019-07-20 07:05] LABS: BASOPHIL % 0.5 % (0-2); PLATELET COUNT 323 x10^3mcL (130-400)
--- NOTE | 2019-07-20 07:10 | NUR ---
BEDSIDE HANDOFF REPORT GIVEN TO LORY-RN, ALL QUESTIONS ANSWERED AND CONCERNS ADDRESSED.
[2019-07-20 07:21] LABS: CALCIUM 8.1 mg/dL (8.5-10.1); CHLORIDE SERUM 106 mmol/L (98-107); CREATININE SERUM 1.2 mg/dL (0.7-1.3); GLUCOSE SERUM 88 mg/dL (74-106); MAGNESIUM 1.6 mg/dL (1.8-2.4); PHOSPHOROUS 2.9 mg/dL (2.5-4.9); POTASSIUM SERUM 3.1 mmol/L (3.5-5.1); SODIUM SERUM 143 mmol/L (136-145)
--- NOTE | 2019-07-20 08:00 | NUR ---
ALERT AND ORIENTED. BREATHING FREELY ON RA. DENIES ANY PAIN. HOB ELEVATED, BED IN LOW POSITION, BED ALARM ON. CALL LIGHT WITHIN REACH. CONTINUED GENERALIZED WEAKNESS. NS INFUSING 100 CC HOUR.TELE # 1 NSR. BP RUNNING LOW. TAKING MIDIDRONE.
[2019-07-20 09:17] VITALS: BP 88/58
[2019-07-20 12:23] VITALS: BP 123/61
[2019-07-20 17:02] VITALS: BP 114/60
--- NOTE | 2019-07-20 18:32 | NUR ---
PT HAS BEEN RESTING COMFORTABLY THIS SHIFT. NO C/O PAIN. SEEN BY P.T. MAY BE GOING TO [facility] UPON DC. CONTINUES ON NS 100 CC, ZOSYN IV ABX. KRIDER INFUSED. GOOD APPETITE. VSS. CURRENTLY NON AMBULATORY D/T GENERALIZED WEAKNESS. CALL LIGHT WITHIN REACH.
[2019-07-20 19:10] VITALS: BP 105/60
--- NOTE | 2019-07-20 19:10 | NUR ---
RECEIVED PT IN BED AWAKE ALERT AND VERBALLY RESPONSIVE.DENIES CHESTPAIN AT THIS TIME.BP 105/60 MMHG,HR 67.ON FALL PRECAUTIONS D/T MULTIPLE FALLS LATELY.MULTIPLE ABRASIONS AND DISCOLORATION ALL OVER BODY NOTED.BED ALARM ON AT ALL TIMES.WILL CONTINUE TO MONITOR.
--- NOTE | 2019-07-21 05:03 | NUR ---
PT SLEPT WELL ALL NIGHT.NO ASE NOTED FROM ZOSYN IV ATB.NO FALLS/INJURY NOTED.BEDALARM ON AT ALL TIMES.ALL NEEDS MET.WILL CONTINUE TO MONITOR.
[2019-07-21 05:18] VITALS: BP 124/74
[2019-07-21 06:17] LABS: PLATELET COUNT 344 x10^3mcL (130-400)
[2019-07-21 06:26] LABS: BASOPHIL % 2.3 % (0-2)
[2019-07-21 06:38] LABS: CALCIUM 8.3 mg/dL (8.5-10.1); CARBON DIOXIDE 28.9 mmol/L (21-32); CHLORIDE SERUM 108 mmol/L (98-107); CREATININE SERUM 1.1 mg/dL (0.7-1.3); GLUCOSE SERUM 89 mg/dL (74-106); POTASSIUM SERUM 3.8 mmol/L (3.5-5.1); SODIUM SERUM 144 mmol/L (136-145)
--- NOTE | 2019-07-21 08:00 | NUR ---
SHIFT ASSESSMENT DONE. PATIENT ALERT/ORIENTED TO X3. ABLE TO MADE NEEDS KNOWN. GENERAL WEAKNESS. HX OF MULTIPLE FELL AT HOME. MULTIPLE BRUISES AND ABRATIONS TO ARMS/LEGS/SACRAL AREA. 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 NO RESP DSITRESS ON RA. TELE#1, SB-SR; HR = 55-62/MIN. DENIED CHEST PAIN. BED RESTING NOW. BED ALARM ON. FALL PRECAUTION IN PLACE.
[2019-07-21 09:45] VITALS: BP 122/56
[2019-07-21 13:15] VITALS: BP 120/66
--- NOTE | 2019-07-21 13:30 | NUR ---
NOTIFIED ADAMARIS JOSE WITH PATIENT'S MAG LEVEL WAS 1.6. MAG-OX 400MG PO GIVEN PER ORDER.
[2019-07-21 17:06] VITALS: BP 125/63
--- NOTE | 2019-07-21 19:00 | NUR ---
REPORT RECEIVED BY DAY SHIFT RN. PATIENT WAS SEEN AND IS RESTING COMFORTABLY IN BED. NO DISTRESS NOTED. BREATHING EVEN AND UNLABORED ON ROOM AIR. NO SOB OR RESP DISTRESS NOTED. PATIENT LAYING IN BED AND DENIES DIZZINESS AT THIS TIME. REPORTS DIZZINESS WHEN HE STATES. DENIES CHEST PAIN/PRESSURE. DENIES PAIN AT THIS TIME. IV TO THE RFA INFUSING WELL. PATENT AND INTACT. NO REDNESS OR SWELLING NOTED. URINAL AT BEDSIDE. COMFORT AND SAFETY MEASURES IN PLACE. BED IS LOCKED AND IN THE LOWEST POSITION. SIDE RAILS UP X2. CALL LIGHT IS WITHIN REACH. BED ALARM ON. WILL CONTINUE TO MONITOR.
--- NOTE | 2019-07-21 19:00 | NUR ---
CONDITION IMPROVED. DENIED DIZZINESS. SPEECH CLEAR. TELE D/C'D PER ORDER. VOID 800CC OF YELLOWISH URINE VIA URINAL SUPERVISOR POWDERED METAL BM THIS SHIFT. DENIED PAIN. IVF OF NS 100CC/HR CONTINUED. BED ALARM ON. ENDORSED CARE TO [facility] NURSE.
[2019-07-21 20:37] VITALS: BP 126/64
--- NOTE | 2019-07-22 00:10 | NUR ---
RESTING IN BED WITH EYES CLOSED. NO DISTRESS NOTED. BREATHING EVEN AND UNLABORED ON ROOM AIR. NO SOB OR RESP DISTRESS NOTED. DENIES CHEST PAIN/PRESSURE. NO C/O PAIN. IV TO RFA INFUSING WELL. SAFETY MEASURES IN PLACE. CALL LIGHT IS WITHIN REACH. WILL CONTINUE TO MONITOR.
--- NOTE | 2019-07-22 03:25 | NUR ---
RESTING IN BED WITH EYES CLOSED. NO DISTRESS NOTED. BREATHING EVEN AND UNLABORED ON ROOM AIR. NO SOB NOTED. NO S/S OF PAIN NOTED. SAFETY MEASURES IN PLACE. IVF INFUSING WELL. CALL LIGHT IS WITHIN REACH. WILL CONTINUE TO MONITOR.
[2019-07-22 06:00] LABS: BASOPHIL % 0.4 % (0-2); PLATELET COUNT 340 x10^3mcL (130-400)
[2019-07-22 06:35] VITALS: BP 140/77
--- NOTE | 2019-07-22 07:36 | NUR ---
RESTED IN LONG INTERVALS THROUGHOUT THE NIGHT. NO DISTRESS NOTED. NO ACUTE CHANGES NOTED. BREATHING EVEN AND UNLABORED ON ROOM AIR. NO SOB. ALL NEEDS AND CONCERNS ADDRESSED. SAFETY MEASURES IN PLACE. CALL LIGHT IS WITHIN REACH. ENDORSED CARE TO TUNDE MYERS.
[2019-07-22 07:52] LABS: CARBON DIOXIDE 27.1 mmol/L (21-32); CHLORIDE SERUM 110 mmol/L (98-107); GLUCOSE SERUM 86 mg/dL (74-106); POTASSIUM SERUM 3.6 mmol/L (3.5-5.1); SODIUM SERUM 144 mmol/L (136-145)
--- NOTE | 2019-07-22 07:59 | NUR ---
REPORT RECEIVED FROM TUNDE HODGES. PATIENT APPEARS STABLE IN BED. PENDING DISCHARGE TO [facility] TODAY. PATIENT AWARE. WILL CONTINUE TO MONITOR.
[2019-07-22 08:59] VITALS: BP 118/65
[2019-07-22] MEDS ORDERED: LEVAQUIN750 MG PO (09:15)
[2019-07-22] MEDS ORDERED: PROA PO (09:25)
--- NOTE | 2019-07-22 11:39 | NUR ---
REPORT GIVEN TO TUNDE RAMIREZ FROM [facility] FOR PENDING TRANSFER OF PATIENT AT 2 PM. PATIENT MADE AWARE.
[2019-07-22 12:09] VITALS: BP 118/65
--- NOTE | 2019-07-22 13:12 | NUR ---
PT NOTES CHART REVIEWED. CLEARED BY NSG FOR TX. PT DECLINED TO PARTICIPATE IN THERAPY. PT REPORTS, "I'M BEING DISCHARGED AT 2. I DON'T WANT TO DO PHYSICAL THERAPY." PT WAS EDUCATED & ENCOURAGED TO PARTICIPATE IN THERAPY, BUT DECLINED. RN IS AWARE.
--- NOTE | 2019-07-22 14:10 | NUR ---
[facility] AT 1400 [facility] [place], [place]. REPORT GIVEN TO WAND[facility] OF [facility]. PATIENT IS STABLE. NO SIGNS OF DISTRESS NOTED.
--- NOTE | 2019-07-24 17:57 | NUR ---
PHYSICAL THERAPY DAILY NOTES CO-SIGN All documentation done by the Plaster Form Maker for 07/22/19 has been reviewed. I agree with the documentation. Reviewed/Co-Signed by: Av Ramirez PT Documentation Done by:MARIBELL NYE CONCRETE SAW OPERATOR LATE ENTRY FOR 07/22/19; POC REVIEWED W/ CONCRETE SAW OPERATOR
== END 2019-07-22 14:00 | DRG 682 ==
LOC: ED 12:14 → DU 13:54 → MU 07-21 14:12
PROVIDERS: Emergency Medicine; ADMIT General Practice
DX: N17.0 Acute kidney failure with tubular necrosis (principal); J18.9 Pneumonia, unspecified organism; M62.81 Muscle weakness (generalized); E87.6 Hypokalemia; I95.1 Orthostatic hypotension; F31.9 Bipolar disorder, unspecified; N40.0 Benign prostatic hyperplasia without lower urinary tract symptoms; E03.9 Hypothyroidism, unspecified; Z91.81 History of falling; Z87.442 Personal history of urinary calculi; Z95.3 Presence of xenogenic heart valve; Z90.3 Acquired absence of stomach [part of]; Z68.21 Body mass index [BMI] 21.0-21.9, adult; Z87.11 Personal history of peptic ulcer disease; Z87.891 Personal history of nicotine dependence
CPT/HCPCS: 84439; 97116-GP; 97530-GP; G0378; J2543; J3480; J7030; Q0092

== ENCOUNTER 2019-10-27 22:03 | Emergency (ER) | payer OTHER, MEDICARE ==
[~2019-10-27] VITALS: Ht 177.8 cm; Wt 74.8 kg
[~2019-10-27 22:03] MED LIST changes: +LEVAQUIN750 MG PO; +PROA PO
[2019-10-27 23:11] VITALS: Ht 177.8 cm; Wt 74.8 kg
[2019-10-28 03:08] VITALS: BP 138/71
== END 2019-10-28 03:08 | disposition home or self-care (01) ==
LOC: ED 22:03
DX: S00.01XA Abrasion of scalp, initial encounter (principal); E03.9 Hypothyroidism, unspecified; Z90.89 Acquired absence of other organs; Z87.442 Personal history of urinary calculi; W19.XXXA Unspecified fall, initial encounter; Y93.89 Activity, other specified; Y92.89 Other specified places as the place of occurrence of the external cause; Y99.8 Other external cause status

== ENCOUNTER 2019-11-08 20:16 | Emergency (ER) | payer OTHER, MEDICARE ==
[~2019-11-08] VITALS: Ht 175.3 cm; Wt 72.6 kg
[2019-11-09 01:43] VITALS: BP 134/89
== END 2019-11-09 01:00 | disposition home or self-care (01) ==
LOC: ED 20:16
DX: S00.81XA Abrasion of other part of head, initial encounter (principal); M25.511 Pain in right shoulder; E03.9 Hypothyroidism, unspecified; E78.5 Hyperlipidemia, unspecified; I12.9 Hypertensive chronic kidney disease with stage 1 through stage 4 chronic kidney disease, or unspecified chronic kidney disease; N18.9 Chronic kidney disease, unspecified; Z98.890 Other specified postprocedural states; Z87.442 Personal history of urinary calculi; W01.0XXA Fall on same level from slipping, tripping and stumbling without subsequent striking against object, initial encounter; Y93.89 Activity, other specified; Y92.098 Other place in other non-institutional residence as the place of occurrence of the external cause; Y99.8 Other external cause status